=== PATIENT | female | born 1955 | race Caucasian/White ===

== ENCOUNTER 2017-07-26 18:53 | Inpatient (IN) | payer OTHER ==
[~2017-07-26 18:53] MED LIST: IOPAMIDOL (ISOVUE 370) 100 ML BTL IV ONE
[2017-07-26] MEDS ORDERED: HEPARIN 10,000 UNIT/10 ML MDV IVP ONE (19:27)
[2017-07-26] MEDS ORDERED: HEPARIN/DEXTROSE 500 ML IV ONE (19:27)
--- NOTE | 2017-07-26 19:33 | EDPHY ---
H & P Stated Complaint: Told by Dr Gar to come to ED after results of carotid CT Time Seen by Provider: 07/26/17 19:19 HPI/ROS: CHIEF COMPLAINT: Carotid artery occlusion HISTORY OF PRESENT ILLNESS: The patient is a 61-year-old female who comes to the emergency department who is sent in by her donor services coordinator Dr. Gar because of a near 100% occlusion of her left carotid artery. She had an MRI done of her C-spine a few weeks ago for orthopedic reasons. They noticed an incidental stroke. Her primary began working up her carotid arteries and today she had a CT angio that revealed a near 100% occlusion of her left carotid, 30% on the right. She feels slightly anxious because of her symptoms. REVIEW OF SYSTEMS: Constitutional: denies: chills, fever, recent illness, recent injury EENTM: denies: blurred vision, double vision, nose congestion Respiratory: denies: cough, shortness of breath Cardiac: denies: chest pain, irregular heart rate, lightheadedness, palpitations Gastrointestinal/Abdominal: denies: abdominal pain, diarrhea, nausea, vomiting, blood streaked stools Genitourinary: denies: dysuria, frequency, hematuria, pain Musculoskeletal: denies: joint pain, muscle pain Skin: denies: lesions, rash, jaundice, bruising Neurological: denies: headache, numbness, paresthesia, tingling, dizziness, weakness Hematologic/Lymphatic: denies: blood clots, easy bleeding, easy bruising Immunologic/allergic: denies: HIV/AIDS, transplant EXAM: GENERAL: Well-appearing, well-nourished and in no acute distress. HEAD: Atraumatic, normocephalic. EYES: Pupils equal round and reactive to light, extraocular movements intact, sclera anicteric, conjunctiva are normal. ENT: TMs normal, nares patent, oropharynx clear without exudates. Moist mucous membranes. NECK: Normal range of motion, supple without lymphadenopathy or JVD. LUNGS: Breath sounds clear to auscultation bilaterally and equal. No wheezes rales or rhonchi. HEART: Regular rate and rhythm without murmurs, rubs or gallops. ABDOMEN: Soft, nontender, normoactive bowel sounds. No guarding, no rebound. No masses appreciated. BACK: No CVA tenderness, no spinal tenderness, step-offs or deformities EXTREMITIES: Normal range of motion, no pitting or edema. No clubbing or cyanosis. NEUROLOGICAL: Cranial nerves II through XII grossly intact. Normal speech, normal gait. 5/5 strength, normal movement in all extremities, normal sensation PSYCH: Normal mood, normal affect. SKIN: Warm, dry, normal turgor, no visible rashes or lesions. Source: Patient Exam Limitations: No limitations - Personal History Current Tetanus Diphtheria and Acellular Pertussis (TDAP): Yes - Medical/Surgical History Hx Asthma: No Hx Chronic Respiratory Disease: No Hx Diabetes: No Hx Cardiac Disease: No Hx Renal Disease: No Hx Cirrhosis: No Hx Alcoholism: No Hx HIV/AIDS: No Hx Splenectomy or Spleen Trauma: No Other PMH: Possible previous stroke. - Family History Significant Family History: No pertinent family hx - Social History Smoking Status: Never smoked Alcohol Use: Sober Drug Use: None Constitutional: Initial Vital Signs Temperature (C) 36.9 C 07/26/17 18:55 Heart Rate 91 07/26/17 18:55 Respiratory Rate 18 07/26/17 18:55 Blood Pressure 149/91 H 07/26/17 18:55 O2 Sat (%) 95 07/26/17 18:55 O2 Delivery Mode Room Air Allergies/Adverse Reactions: latex Allergy (Verified 07/26/17 18:59) Sulfa (Sulfonamide Antibiotics) Allergy (Verified 07/26/17 18:59) Home Medications: Medication Instructions Recorded Citalopram 07/26/17 GABAPENTIN 07/26/17 Medical Decision Making - Diagnostics EKG Interpretation: An EKG obtained and was read and documented in trace view. Please see trace view for full reading and report. Sinus rhythm, no acute ischemic changes Imaging Results: Imaging Impressions Neck CTA 07/26/17 16:00 Impression: 1. Left internal carotid artery severe atherosclerotic disease with critical stenosis greater than 95%. Recommend cardiovascular surgery consult. 2. Mild atherosclerotic disease right internal carotid artery with 30% diameter stenosis. 3. Patent vertebrobasilar system with a dominant left vertebral artery and a very small right vertebral artery. 4. Left thyroid nodule measuring 2 x 1.5 cm. Recommend ultrasound thyroid and ultrasound FNA biopsy when the patient's medical condition permits, if not previously performed. Measurement of carotid stenosis is based on the residual internal carotid diameter with [place] Symptomatic Carotid Endarterectomy Trial (NASCET) based stenosis levels. Findings and recommendations discussed with Hiren Gar MD at 18:16 hour, 07/26/2017. Final report concurs with initial preliminary interpretation. A test result has been communicated to a licensed care provider and documented in the [email or web address] Critical Result system on 07/26/2017 18:17, Message ID [id number]. ED Course/Re-evaluation: 7:40 p.m. we will draw lab work and start the patient on heparin drip as recommended. I spoke with Dr ANAIS Baeza who will admit to the medical service and I spoke with Dr. Kevin Cortez who will ask Dr. Koby Alvarez to consult for possible carotid endarterectomy. Differential Diagnosis: Partial list of the Differential diagnosis considered include but were not limited to; carotid occlusion and although unlikely based on the history and physical exam, I also considered dissection, CVA, acute coronary disease. - Data Points Laboratory Results: Laboratory Results 07/26/17 19:25 07/26/17 07/26/17 07/26/17 19:25 19:25 19:25 WBC 7.25 10^3/uL 10^3/uL (3.80-9.50) RBC 4.54 10^6/uL 10^6/uL (4.18-5.33) Hgb 13.5 g/dL g/dL (12.6-16.3) Hct 41.2 % % (38.0-47.0) MCV 90.7 fL fL (81.5-99.8) MCH 29.7 pg pg (27.9-34.1) MCHC 32.8 g/dL g/dL (32.4-36.7) RDW 12.9 % % (11.5-15.2) Plt Count 265 10^3/uL 10^3/uL (150-400) MPV 9.5 fL fL (8.7-11.7) Neut % (Auto) 54.6 % % (39.3-74.2) Lymph % (Auto) 34.8 % % (15.0-45.0) [place] % (Auto) 7.4 % % (4.5-13.0) Eos % (Auto) 2.1 % % (0.6-7.6) Baso % (Auto) 0.8 % % (0.3-1.7) Nucleat RBC Rel Count 0.0 % % (0.0-0.2) Absolute Neuts (auto) 3.96 10^3/uL 10^3/uL (1.70-6.50) Absolute Lymphs (auto) 2.52 10^3/uL 10^3/uL (1.00-3.00) Absolute Monos (auto) 0.54 10^3/uL 10^3/uL (0.30-0.80) Absolute Eos (auto) 0.15 10^3/uL 10^3/uL (0.03-0.40) Absolute Basos (auto) 0.06 10^3/uL 10^3/uL (0.02-0.10) Absolute Nucleated RBC 0.00 10^3/uL 10^3/uL (0-0.01) Immature Gran % 0.3 % % (0.0-1.1) Immature Gran # 0.02 10^3/uL 10^3/uL (0.00-0.10) PT Pending INR Pending APTT Pending Sodium Pending Potassium Pending Chloride Pending Carbon Dioxide Pending Anion Gap Pending BUN Pending Creatinine Pending Estimated GFR Pending Glucose Pending Calcium Pending Departure - Departure Disposition: [facility] Acute Clinical Impression: Carotid artery occlusion Condition: Fair
[2017-07-26 19:35] LABS: % IMMATURE GRANULYOCYTES 0.3 % (0.0-1.1); ABSOLUTE IMMATURE GRANULOCYTES 0.02 10^3/uL (0.00-0.10); ADD DIFF? NO; ADD MORPH? NO; ADD SCAN? NO; ATYPICAL LYMPHOCYTE FLAG 0 (0-99); FRAGMENT RBC FLAG 0 (0-99); HEMATOCRIT 41.2 % (38.0-47.0); HEMOGLOBIN 13.5 g/dL (12.6-16.3); LEFT SHIFT FLG 0 (0-99); LIPEMIA HEMOLYSIS FLAG 80 (0-99); MEAN CELL HEMOGLOBIN 29.7 pg (27.9-34.1); MEAN CELL HEMOGLOBIN CONCENTR. 32.8 g/dL (32.4-36.7); MEAN CELL VOLUME 90.7 fL (81.5-99.8); MEAN PLATELET VOLUME 9.5 fL (8.7-11.7); PLATELET CLUMPS FLAG 10 (0-99); PLATELET COUNT 265 10^3/uL (150-400); RED BLOOD CELL COUNT 4.54 10^6/uL (4.18-5.33); RED CELL DISTRIBUTION WIDTH 12.9 % (11.5-15.2)
[2017-07-26 19:44] LABS: APTT 24.6 SEC (23.0-38.0); INR 0.96 (0.83-1.16); PROTIME(PATIENT) 12.7 SEC (12.0-15.0)
[2017-07-26] MEDS ORDERED: ONDANSETRON DISINTEGRATING 4 MG TAB PO PRN (19:44)
[2017-07-26] MEDS ORDERED: ACETAMINOPHEN 325 MG TAB PO PRN (19:44)
[2017-07-26] MEDS ORDERED: ONDANSETRON 4 MG/2 ML VIAL IVP PRN (19:44)
--- NOTE | 2017-07-26 19:44 | CPEKG ---
Heart Rate: 85 RR Interval: 706 P-R Interval: 136 QRSD Interval: 90 QT Interval: 368 QTC Interval: 438 P [place]: 53 QRS [place]: 7 T Wave [place]: 47 EKG Severity - NORMAL ECG - EKG Impression: SINUS RHYTHM Electronically Signed By: Eder Lugo 26-Jul-2017 19:45:32
[2017-07-26 19:45] LABS: ANION GAP 11 mEq/L (8-16); CALCIUM 9.2 mg/dL (8.5-10.4); CARBON DIOXIDE 27 mEq/l (22-31); CHLORIDE 102 mEq/L (97-110); CREATININE 0.6 mg/dL (0.6-1.0); GLOMERULAR FILTRATION RATE > 60; GLUCOSE 108 mg/dL (70-100); POTASSIUM 3.6 mEq/L (3.5-5.2); SODIUM 140 mEq/L (134-144)
[2017-07-26] MEDS ORDERED: HEPARIN/DEXTROSE 500 ML IV SCH (19:45)
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
--- NOTE | 2017-07-26 23:19 | GHP ---
[f rep st] HISTORY AND PHYSICAL DATE OF ADMISSION: 07/26/2017 CHIEF COMPLAINT: Abnormal neck imaging. HISTORY OF PRESENT ILLNESS: This is a 61-year-old female with past medical history that includes nec k fusions, actively managed by Orthopedics, who presents after her orthopedic surgeon obtained CT deepali ging for her outpatient workup of neck pain and found that she had severe carotid stenosis. The tran ent was directed for evaluation by the emergency department. Upon arrival to the hospital, the patie nt is without neurologic complaint. She denies numbness or tingling, weakness, headaches, dizziness, gait instability. She denies chest pain. She denies palpitations, vision changes, abdominal pain, diarrhea or constipation, dysuria, hematuria, or lower extremity edema. PAST MEDICAL HISTORY: Musculoskeletal pain with spinal fusion. SOCIAL HISTORY: Negative for tobacco, alcohol very rarely, or illicit drugs. FAMILY HISTORY: Positive for extensive cardiovascular disease on her father's side, with multiple re latives with early strokes and heart attacks in their 40s. REVIEW OF SYSTEMS: A 10-point review of systems is negative with the exception of that reported in t he HPI. PHYSICAL EXAMINATION: VITAL SIGNS: Blood pressure 153/89, heart rate 75, respiratory rate 16, 96% o n room air, 36.9. GENERAL: This is a very pleasant, healthy-appearing middle-aged female in no acut e distress. HEENT: Notable for moist mucous membranes. Eyes negative for any icterus. CARDIAC: R egular rate and rhythm. No murmurs, gallops, or rubs. PULMONARY: Clear to auscultation bilaterally . GASTROINTESTINAL: Positive bowel sounds. Abdomen soft and nontender in all 4 quadrants. MUSCULO SKELETAL: Negative for any lower extremity edema. SKIN: Negative for any rashes. NEUROLOGIC: The patient's strength is intact bilaterally of the upper and lower extremities. Sensation is intact th roughout. Gait was not examined. Pupils are equal, round, reactive to light. Cranial nerves 2-12 a re grossly intact. PSYCHIATRIC: She is pleasant and cooperative on interview and examination. DATA: White count 7.2, hematocrit 41.2, platelets of 265. Creatinine is 0.6. Hemoglobin A1c of 5.4 . CTA of the neck, which I personally reviewed and interpreted, shows left internal carotid atheroscler otic disease. Stenosis is estimated at 95% by Radiology. Right internal carotid has 30% estimated s tenosis. Vertebrobasilar system is patent with a dominant left vertebral artery, small right. There is a left thyroid nodule noted. ASSESSMENT AND PLAN: This is a 61-year-old female presenting with left internal carotid stenosis. 1. Left internal carotid stenosis, presumed chronic based on the patient's lack of symptoms at prese ntation. Imaging consistent with profound stenosis on the left, less so on the right. Cardiovascula r Surgery has been consulted. Heparin drip started in the emergency department. Ultrasound of the c arotids has been obtained. Discussion with the surgeons. It has been decided that once ultrasound i maging is obtainable, a decision can be made about pursuing surgical intervention on the left carotid . Will send lipid studies and can discuss ongoing need for heparin with the vascular surgeons. Very possible it is unnecessary in this setting. 2. Thyroid nodule, another finding found on CT expectedly. The patient can have outpatient ultrasou nd and biopsy if necessary after resolution of her acute issues. 3. Hypertension. Blood pressures in the 140s to 150s. Suspect part of it is related to the stress of her acute presentation. We do not have outside data confirming whether this is chronic elevation. Will monitor overnight without medications. 4. Prophylaxis. The patient is currently on a heparin drip. 5. Diet. N.P.O. until surgical evaluation in the morning. DISPOSITION: I expect greater than 2 midnights, as the patient likely will be taken to the operating room for surgical intervention by Dr. Alvarez. I discussed the case with the emergency room physician , as well as Dr. Cortez from surgery. The patient will be evaluated by Dr. Alvarez in the morning. /[id number]/MODL
[2017-07-27 05:14] LABS: % IMMATURE GRANULYOCYTES 0.2 % (0.0-1.1); ABSOLUTE IMMATURE GRANULOCYTES 0.02 10^3/uL (0.00-0.10); ADD DIFF? NO; ADD MORPH? NO; ADD SCAN? NO; ATYPICAL LYMPHOCYTE FLAG 10 (0-99); FRAGMENT RBC FLAG 0 (0-99); HEMATOCRIT 39.4 % (38.0-47.0); HEMOGLOBIN 12.8 g/dL (12.6-16.3); LEFT SHIFT FLG 0 (0-99); LIPEMIA HEMOLYSIS FLAG 80 (0-99); MEAN CELL HEMOGLOBIN 29.2 pg (27.9-34.1); MEAN CELL HEMOGLOBIN CONCENTR. 32.5 g/dL (32.4-36.7); MEAN CELL VOLUME 89.7 fL (81.5-99.8); MEAN PLATELET VOLUME 9.8 fL (8.7-11.7); PLATELET CLUMPS FLAG 10 (0-99); PLATELET COUNT 246 10^3/uL (150-400); RED BLOOD CELL COUNT 4.39 10^6/uL (4.18-5.33); RED CELL DISTRIBUTION WIDTH 12.7 % (11.5-15.2)
[2017-07-27 05:35] LABS: ANION GAP 11 mEq/L (8-16); CARBON DIOXIDE 25 mEq/l (22-31); CHLORIDE 106 mEq/L (97-110); CREATININE 0.6 mg/dL (0.6-1.0); GLOMERULAR FILTRATION RATE > 60; GLUCOSE 82 mg/dL (70-100); POTASSIUM 3.8 mEq/L (3.5-5.2); SODIUM 142 mEq/L (134-144)
[2017-07-27] MEDS ORDERED: Herbals/Supplements -Info Only PO SCH (09:00)
--- NOTE | 2017-07-27 10:41 | SOAPPROG ---
[facility] Progress Note Assessment/Plan: Assessment: Severe left internal carotid artery stenosis with minimal flow above the stenosis but asymptomatic Also a left thyroid mass will need to be evaluated some point Plan: Carotid angiogram to rule out a correctable lesion/if the vessel opens up distally then she will be a candidate for a carotid endarterectomy which we can do next week 07/27/17 10:40 Objective: Vital Signs Temp Pulse Resp BP Pulse Ox 36.9 C 75 16 152/79 H 94 07/27/17 08:00 07/27/17 08:00 07/27/17 08:00 07/27/17 08:00 07/27/17 08:00 Laboratory Results 07/27/17 04:32 07/27/17 04:32 07/26/17 07/27/17 07/28/17 05:59 05:59 05:59 Intake Total 0 Balance 0 PT 12.7 SEC (12.0-15.0) 07/26/17 19:25 INR 0.96 (0.83-1.16) 07/26/17 19:25 ICD10 Worksheet Patient Problems: Problems Problem Status Onset Carotid artery occlusion Acute
[2017-07-27] MEDS ORDERED: NALOXONE HCL 0.4 MG/ML INJ ONE (11:28)
[2017-07-27] MEDS ORDERED: FLUMAZENIL 0.5 MG/5 ML MDV IVP ONE (11:28)
[2017-07-27] MEDS ORDERED: MIDAZOLAM 2 MG/2 ML VIAL ONE (11:28)
[2017-07-27] MEDS ORDERED: fentaNYL 100 MCG/2 ML INJ ONE (11:29)
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
[2017-07-27] MEDS ORDERED: IOPAMIDOL (ISOVUE-300) 100 ML BTL ONE (13:41)
--- NOTE | 2017-07-27 13:48 | POSTOPPROG ---
Post Op Note Date of Operation: 07/27/17 Surgeon: Ana Bray Anesthesia: IV Sedation (fentanyl and versed) Pre-op Diagnosis: carotid stenosis Post-op Diagnosis: same Indication: evaluate whether there's a patent LT ICA Procedure: carotid angiograms Findings: very diseased LT ICA with no intracranial flow Inf/Abcess present in the surg proc area at time of surgery?: No Depth: Superfical (Skin SQ) EBL: Minimal Complications: None
--- NOTE | 2017-07-27 15:03 | SOAPPROG ---
[facility] Progress Note Assessment/Plan: Assessment: 61yo female with occluded left internal carotid Plan: nonoperable lesion ok to d/c from surgery perspective 07/27/17 15:02 Objective: Vital Signs Temp Pulse Resp BP Pulse Ox 36.9 C 78 16 123/66 H 92 07/27/17 14:54 07/27/17 14:54 07/27/17 14:54 07/27/17 14:54 07/27/17 14:54 Laboratory Results 07/27/17 04:32 07/27/17 04:32 07/26/17 07/27/17 07/28/17 05:59 05:59 05:59 Intake Total 0 Balance 0 PT 12.7 SEC (12.0-15.0) 07/26/17 19:25 INR 0.96 (0.83-1.16) 07/26/17 19:25 ICD10 Worksheet Patient Problems: Problems Problem Status Onset Carotid artery occlusion Acute
--- NOTE | 2017-07-27 15:08 | HOSPPROG ---
Hospitalist Progress Note Assessment/Plan: 61y female with abnormal neck imagining. First encounter, chart reviewed. D/W Dr Alvarez and Dr Cortez. #LT ICA severe carotid arteriogram cont heparin gtt start coumadin #Thyroid nodule follow up outpt #HTN stable, likely close to her baseline now #Hypercholesterol start lipitor discussed diet with pt fu pcp #Dispo likely in am will need bridge therapy Subjective: Feeling ok. No pain. Anxious about plan. Objective: Vital Signs Temp Pulse Resp BP Pulse Ox 36.9 C 78 16 123/66 H 92 07/27/17 14:54 07/27/17 14:54 07/27/17 14:54 07/27/17 14:54 07/27/17 14:54 Laboratory Results 07/27/17 04:32 07/27/17 04:32 07/26/17 07/27/17 07/28/17 05:59 05:59 05:59 Intake Total 0 Balance 0 PT 12.7 SEC (12.0-15.0) 07/26/17 19:25 INR 0.96 (0.83-1.16) 07/26/17 19:25 - Physical Exam Constitutional: no apparent distress, appears nourished, not in pain Eyes: PERRL, anicteric sclera, EOMI Ears, Nose, Mouth, Throat: moist mucous membranes, hearing normal, ears appear normal Cardiovascular: regular rate and rhythym, No JVD, No edema Respiratory: no respiratory distress, no rales or rhonchi, reduced air movement Gastrointestinal: normoactive bowel sounds, No tenderness, No ascites Skin: warm, normal color, No erythema Musculoskeletal: full muscle strength, normal joint ROM, no joint effusions Neurologic: AAOx3 Psychiatric: interacting appropriately, not anxious, not encephalopathic, thought process linear ICD10 Worksheet Patient Problems: Problems Problem Status Onset Carotid artery occlusion Acute
[2017-07-27] MEDS ORDERED: WARFARIN SODIUM 5 MG TAB PO SCH (15:15)
--- NOTE | 2017-07-27 16:14 | ASMTCMCOM ---
CM Note CM Note Notes: CM reviewed chart, pt is a 61 y/o female admitted with abnormal neck imaging. Pt has a hx of musculoskeletal pain with spinal fusion. Dr. Alvarez consulted with pt and pt is a candidate for a carotid endarterectomy. Pt will most likely dischage tomorrow as an independent w/ supportive . No therapies ordered. CM available for any changes. Date Signed: 07/27/2017 04:13 PM Electronically Signed By:REBECA Agudelo
[2017-07-27] MEDS: ATORVASTATIN CALCIUM 10 MG TAB PO SCH (17:13)
[2017-07-27] MEDS ORDERED: CITALOPRAM 20 MG TAB PO SCH (21:00)
[2017-07-27] MEDS ORDERED: GABAPENTIN 300 MG CAP PO SCH (21:00)
[2017-07-27] MEDS ORDERED: HEPARIN 10,000 UNIT/10 ML MDV IVP PRN (21:07)
[2017-07-28] MEDS ORDERED: ENOXAPARIN 60 MG/0.6 ML SYR SC SCH (11:00)
[2017-07-28] MEDS: ATORVASTATIN CALCIUM 10 MG TAB PO SCH (11:22)
[2017-07-28 11:47] VITALS: BP 142/85; PULSE 86; RESP 14; TEMP 98.6; O2SAT 95
--- NOTE | 2017-07-28 14:22 | ASDISCHSUM ---
Discharge Information Plan Status:Home with No Needs Medically Cleared to Leave: Discharge Date:07/28/2017 12:24 PM CM D/C Disposition:Home, Routine, Self-Care ADT D/C Disposition:Home, Routine, Self-Care Projected Discharge Date:07/28/2017 12:24 PM Transportation at D/C:Family Discharge Delay Reason: Follow-Up Date:07/28/2017 12:24 PM Discharge Slot: Final Diagnosis: Placement Information Patient Contact Information Contact Name:ARABELLA Relationship: Address[address] City:[place] Alternate Phone: [facility] Code:[place] [address] Email: Financial Information Financial Class:HMO and PPO Plans Primary Plan Desc:H[employer] [place] [employer] Primary Plan Number:[id number] Secondary Plan Desc: Secondary Plan Number: Assessment Information [facility] CM Progress Note CM Note CM Note Notes: CM reviewed chart, pt is a 61 y/o female admitted with abnormal neck imaging. Pt has a hx of musculoskeletal pain with spinal fusion. Dr. Alvarez consulted with pt and pt is a candidate for a carotid endarterectomy. Pt will most likely dischage tomorrow as an independent w/ supportive . No therapies ordered. CM available for any changes. Date Signed: 07/27/2017 04:13 PM Electronically Signed By:REBECA Agudelo Intervention Information
--- NOTE | 2017-07-28 22:34 | GDS ---
[f rep st] DISCHARGE SUMMARY DISCHARGE DIAGNOSES: 1. Left internal carotid artery stenosis, severe. 2. Thyroid nodule. 3. Hypertension. 4. Hypercholesterolemia. CONSULTATIONS: 1. Dr. Alvarez. 2. Dr. Cortez. 3. Dr. Bray. STUDIES AND PROCEDURES DONE: 1. Carotid arteriogram. 2. Carotid Doppler study. 3. CT angio of the neck. PHYSICAL EXAM: GENERAL: The patient is alert. VITAL SIGNS: Afebrile at 37, pulse is 86, respirato ry rate is 14, blood pressure is 142/85. She is saturating 95% on room air. I have seen and evaluated the patient on the day of discharge. HOSPITAL COURSE: The patient is a 61-year-old female who has presented to the emergency room with ab normal neck imaging. She was evaluated and diagnosed with: 1. Severe left internal carotid artery stenosis. During this hospitalization, she received consulta tions from Dr. Alvarez as well as Trauma Surgery. She was evaluated with a carotid arteriogram noting 25% narrowing of the base of the right internal carotid artery as well as heavily diseased left inter nal carotid artery. She was started on a heparin drip and treated with anticoagulating medications. She has been transitioned to Coumadin as well as Lovenox and will continue these anticoagulating med ications in the outpatient setting. She has received education regarding her Coumadin and Lovenox in cluding consistency and diet restrictions. The patient has no residual effects of her severe stenosi s and will follow up in the outpatient with her primary care physician. 2. Thyroid nodule. This is to be followed up in the outpatient setting. It is recommended that she have a biopsy arranged by her primary care physician. The patient has been educated with regard to this condition. 3. Hypertension. Antihypertensive medications have not been initiated during this hospitalization a nd should be reviewed with her primary care provider before initiation given her severe stenosis. 4. Hypercholesterolemia. I have started the patient on Lipitor during this hospital course. Follow up will be with her primary care doctor for laboratory evaluation and management. DISPOSITION: The patient will be discharged home independently. I have provided lengthy education r egarding her symptoms as well as management and medication options. FOLLOWUP: Will be with her primary care physician on 07/30/2017, for an INR evaluation. DISCHARGE MEDICATIONS: Include Coumadin, Lovenox, Lipitor. I have not adjusted the patient's other previously prescribed home medications to the best of my knowledge. I have spent greater than 35 minutes in the care, coordination, and management of this patient's disp osition. /[id number]/MODL
== END 2017-07-28 12:24 | disposition home or self-care (01) | DRG 68 ==
LOC: OBSVTOIN 19:46 → F3E 21:19
PROVIDERS: ADMIT Hospitalist; ATTEND Hospitalist
PROC: B3161ZZ Fluoroscopy of Right Internal Carotid Artery using Low Osmolar Contrast (ICD-10-PCS; principal; 2017-07-27)
PROC: B3141ZZ Fluoroscopy of Left Common Carotid Artery using Low Osmolar Contrast (ICD-10-PCS; principal; 2017-07-27)
DX: I65.22 Occlusion and stenosis of left carotid artery (principal); E04.1 Nontoxic single thyroid nodule; E78.00 Pure hypercholesterolemia, unspecified; I10 Essential (primary) hypertension
CPT/HCPCS: 85520-90; C1769; J1200; J1644; J1650; J2250; J2310; J3010; Q9967

== ENCOUNTER → 2017-09-05 | Outpatient (CLI) | payer OTHER ==
--- NOTE | 2017-09-05 14:52 | PDCARST ---
CAR Stress Test Results Type of Stress Test: Bj protocol stress testing with nuclear imaging Indication: atypical "symptoms" during an outpatient ETT Description of Procedure: Consent was signed. Patient's heart was auscultated ( no murmur). Risks and benefits of the study were dicussed prior to consent. Heart rate, blood pressure, oxygen sats were all monitored. Impression: Webb treadmill score was +7 (no symptoms and no ECG changes noted). Peak heart rate to 159 bpm (100% of max predicted for age). Stress images are pending. Unremarkable ETT portion of the MPI. Conclusion: Nuclear images are pending. ETT portion with low CV risk (DTS +7)
== END ==
LOC: FIMAGING 12:41
PROVIDERS: ATTEND Internal Medicine Cardiovascular Disease
CPT/HCPCS: A9500

== ENCOUNTER → 2017-10-15 | Outpatient (CLI) | payer OTHER | LOC: FIMAGING 15:07 | PROVIDERS: ATTEND Physician Assistant | DX: S22.030A Wedge compression fracture of third thoracic vertebra, initial encounter for closed fracture (principal); M50.322 Other cervical disc degeneration at C5-C6 level; M46.92 Unspecified inflammatory spondylopathy, cervical region; G24.8 Other dystonia; Z98.1 Arthrodesis status ==

== ENCOUNTER → 2018-02-05 | Outpatient (CLI) | payer OTHER | LOC: FIMAGING 14:43 | DX: I65.22 Occlusion and stenosis of left carotid artery (principal) | CPT/HCPCS: Q9967 ==

== ENCOUNTER → 2018-05-02 | Outpatient (CLI) | payer OTHER | LOC: FIMAGING 14:33 | DX: I65.23 Occlusion and stenosis of bilateral carotid arteries (principal); E04.2 Nontoxic multinodular goiter | CPT/HCPCS: Q9967 ==

== ENCOUNTER → 2018-09-04 | Outpatient (CLI) | payer OTHER | LOC: FIMAGING 14:02 | PROVIDERS: ATTEND Internal Medicine | DX: Z13.820 Encounter for screening for osteoporosis (principal); M85.89 Other specified disorders of bone density and structure, multiple sites; E04.1 Nontoxic single thyroid nodule; Z78.0 Asymptomatic menopausal state ==

== ENCOUNTER → 2018-09-26 | Outpatient (CLI) | payer OTHER | LOC: FIMAGING 10:07 | PROVIDERS: ATTEND Internal Medicine Endocrinology, Diabetes & Metabolism | DX: E04.1 Nontoxic single thyroid nodule (principal) | CPT/HCPCS: 78014; A9516 ==

== ENCOUNTER → 2018-10-09 | Outpatient (CLI) | payer OTHER, MEDICARE ==
[~2018-10-09] MED LIST changes: -IOPAMIDOL (ISOVUE 370) 100 ML BTL IV ONE; +LIDOCAINE 1% 300 MG/30 ML SDV ONE
== END ==
LOC: FIMAGING 11:34
PROVIDERS: ATTEND Internal Medicine Endocrinology, Diabetes & Metabolism
DX: E04.1 Nontoxic single thyroid nodule (principal)

== ENCOUNTER → 2018-12-27 | Outpatient (CLI) | payer OTHER, MEDICARE ==
[~2018-12-27] MED LIST changes: +IOHEXOL 350mgI/ML (OMNIPAQUE) 150 ML BTL IV ONE; -LIDOCAINE 1% 300 MG/30 ML SDV ONE
== END ==
LOC: FIMAGING 14:46
DX: I77.71 Dissection of carotid artery (principal); I65.22 Occlusion and stenosis of left carotid artery; I77.1 Stricture of artery
CPT/HCPCS: 70496; 70498; Q9967